=== PATIENT | male | born 2005 | race Caucasian/White ===

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

== ENCOUNTER 2025-01-29 02:58 | Emergency (ER) | payer OTHER ==
[2025-01-29 03:05] VITALS: BP 137/88; PULSE 70; RESP 16; TEMP 97.6; BMI 24.3
[2025-01-29] MEDS: IBUPROFEN 600 MG TABLET (FP) PO ONE (03:39)
[2025-01-29] MEDS ORDERED: IBUPROFEN 600 MG TABLET (FP) PO ONE (03:39)
== END 2025-01-29 03:43 | disposition home or self-care (01) ==
LOC: FER 02:58
DX: S90.31XA Contusion of right foot, initial encounter (principal); W20.8XXA Other cause of strike by thrown, projected or falling object, initial encounter; Y99.0 Civilian activity done for income or pay
CPT/HCPCS: 73630-TC-RT-FY; 99283-25